=== PATIENT | male | born 1975 | race Caucasian/White ===

== ENCOUNTER 2020-09-18 08:46 | Emergency (ER) | payer OTHER ==
[~2020-09-18] VITALS: Ht 180.3 cm; Wt 102.1 kg
[~2020-09-18 08:46] MED LIST: HYDROCODON-ACE1 EA10 PO; LISINOPRIL20 MG PO
[2020-09-18] MEDS ORDERED: PREDNISONE20 MG PO (09:30)
[2020-09-18] MEDS ORDERED: HYDROCODON-ACE1 EA11 PO (09:30)
[2020-09-18] MEDS ORDERED: LIDODERM1 EACH TOP (09:30)
== END 2020-09-18 09:45 | disposition home or self-care (01) ==
LOC: ED 08:46
DX: M54.5 Low back pain (principal); F17.200 Nicotine dependence, unspecified, uncomplicated
CPT/HCPCS: 99283; A9270; J7512

== ENCOUNTER 2023-09-11 06:31 | Day surgery (SDC) | payer OTHER ==
[~2023-09-11] VITALS: Ht 180.3 cm; Wt 104.1 kg
[~2023-09-11 06:31] MED LIST changes: +HYDROCODON-ACE1 EA11 PO; +LIDODERM1 EACH TOP; +PREDNISONE20 MG PO
[2023-09-11 06:43] VITALS: BP 158/95
--- NOTE | 2023-09-11 07:38 | NUR ---
09/11/23 0738 KrisAnny PATIENT ARRIVES IN PACU DROWSY. HE IS RESPONDING TO MY QUESTIONS AND RETURNS TO RESTING QUIETLY WITH HIS EYES CLOSED W/RESPIRATIONS EVEN AND UNLABORED.
[2023-09-11 07:45] VITALS: BP 129/79
--- NOTE | 2023-09-11 08:56 | OR ---
[facility] [address], [place] [address] Signed DATE OF OPERATION: 09/11/2023 SURGEON: Haris Mandel MD PREOPERATIVE DIAGNOSIS: Screening. POSTOPERATIVE DIAGNOSIS: Small internal anal skin tag x1. PROCEDURE: Colonoscopy without biopsy. ESTIMATED BLOOD LOSS: None. INDICATIONS: Angel is a 48-year-old gentleman, asked to see me for his initial screening colonoscopy. He has no lower GI complaints. There is no family history of colon cancer or polyps. In the office, I gave him a pamphlet on colonoscopy. He understands the nature of the test. There is risk including, but not limited to gas bloating, crampy abdominal pain, bleeding, perforation requiring surgery, and missed diagnosis. We also reviewed the need for IV conscious sedation. He expressed understanding and wished to proceed. DESCRIPTION OF PROCEDURE: Angel was taken into our endoscopy suite and placed in the left lateral decubitus position. He was given 7 mg of Versed and 100 mcg of fentanyl to cover the case. A digital rectal exam was performed. No external hemorrhoids. Good sphincter tone. I could just reach his prostate and it is somewhat enlarged and indurated given his age. The adult colonoscope was introduced and advanced quite readily around into the cecum itself. His prep was quite excellent. We could easily see the appendiceal orifice and the ileocecal valve. The scope was then slowly withdrawn. We took several pictures throughout for photodocumentation. There were no polyps. There was no diverticulosis. The rectum was unremarkable. Upon retroflexion of the scope, I saw one small 3 or 4 mm internal anal skin tag. After this, the gas was suctioned out and the colonoscope removed. Angel tolerated the procedure quite well. RECOMMENDATIONS: Angel can follow up in 10 years for repeat screening colonoscopy. Electronically Signed By: HARIS MANDEL MD 09/11/23 0856 PATIENT NAME: ANGEL AYALA OPERATIVE REPORT DATE OF : 75 REPORT #: [id number] PHYSICIAN: HARIS MANDEL MD PCP: BRITTNEY KAMARA PAC REPORT IS CONFIDENTIAL AND NOT TO BE RELEASED WITHOUT AUTHORIZATION [address] [address] Signed MD JEZ Gonzales/KAE /[id number] cc: MD Brittney Gonzales PA Copies: HARIS MANDEL MD ~ Electronically Signed By: HARIS MANDEL MD 09/11/23 0856 PATIENT NAME: ANGEL AYALA OPERATIVE REPORT DATE OF : 75 REPORT #: [id number] PHYSICIAN: HARIS MANDEL MD PCP: BRITTNEY KAMARA PAC REPORT IS CONFIDENTIAL AND NOT TO BE RELEASED WITHOUT AUTHORIZATION
== END 2023-09-11 08:00 | disposition home or self-care (01) ==
LOC: DS 06:31
PROVIDERS: ATTEND Colon & Rectal Surgery
PROC: 0DJD8ZZ Inspection of Lower Intestinal Tract, Via Natural or Artificial Opening Endoscopic (ICD-10-PCS; principal; 2023-09-11 07:30)
DX: Z12.11 Encounter for screening for malignant neoplasm of colon (principal); K64.4 Residual hemorrhoidal skin tags; I10 Essential (primary) hypertension; Z68.32 Body mass index [BMI] 32.0-32.9, adult
CPT/HCPCS: J2250; J3010; J7121

== ENCOUNTER 2024-05-09 08:50 | Day surgery (SDC) | payer OTHER ==
[2024-05-05 14:26] VITALS: BP 124/73
[~2024-05-09] VITALS: Ht 180.3 cm; Wt 104.5 kg
[~2024-05-09 08:50] MED LIST changes: +CEFAZOLIN SODIUM 2 GM/20 ML SYR IV SCH; +HEParin SOD (PORCINE) 5,000 UNIT/0.5 ML SYR SUB-Q SCH; +IBLOOD GLUCOSE TEST STRIP 1 EA TEST VI PRN; +LACTATED RINGER'S 1,000 ML IV SCH; +LIDOCAINE HCL 1% 5 ML SDV INJ ONE
[2024-05-09 08:57] VITALS: BP 138/77
[2024-05-09] MEDS ORDERED: MIDAZOLAM HCL 2 MG/2 ML VIAL ONE (11:28)
[2024-05-09] MEDS ORDERED: propofoL 200 MG/20 ML VIAL ONE (11:28)
[2024-05-09] MEDS ORDERED: BUPIVACAINE 0.75% IN DEXTROSE 2 ML AMP ONE (11:29)
[2024-05-09] MEDS ORDERED: LIDOCAINE HCL 2% 5 ML SDV ONE (11:29)
[2024-05-09] MEDS ORDERED: KETOROLAC TROMETHAMINE 30 MG/ML VIAL ONE (13:06)
[2024-05-09] MEDS ORDERED: ondansetron HCL 4 MG/2 ML VIAL ONE (13:06)
[2024-05-09] MEDS ORDERED: HYDROmorphone HCL 1 MG/ML SYR IV PRN (13:30)
[2024-05-09] MEDS ORDERED: NALOXONE HCL 0.4 MG SYR IV PRN ×2 (13:30)
[2024-05-09] MEDS ORDERED: PROCHLORPERAZINE EDISYLATE 10 MG/2 ML VIAL IV PRN (13:30)
[2024-05-09] MEDS ORDERED: HYDROCODONE/ACETA 5/325 TAB PO PRN (13:30)
[2024-05-09] MEDS ORDERED: IBLOOD GLUCOSE TEST STRIP 1 EA TEST VI PRN (13:30)
[2024-05-09] MEDS ORDERED: fentaNYL citrate 50 MCG/ML SDV IV PRN (13:30)
[2024-05-09] MEDS ORDERED: ondansetron HCL 4 MG/2 ML VIAL IV PRN ×2 (13:30)
--- NOTE | 2024-05-09 13:34 | NUR ---
05/09/24 1334 Sheets,Jimena 1314 PT ARRIVED TO PACU AND DENIES CONCERNS. PT ON RA AND PLAN OF CARE DISCUSSED. PT DENIES PAIN AND NAUSEA. 1316 PT ROLLED TO LEFT SIDE AND DRESSING NOTED TO HAVE SMALL AMOUNT OF SHADOWING OF RED DRAINAGE. 1328 HOB INCREASED AND PT SIPPING JUICE PER REQUEST.
[2024-05-09 13:51] VITALS: BP 116/78
--- NOTE | 2024-05-10 07:11 | OR ---
[facility] [address] [place], [place] [address] Signed DATE OF OPERATION: 05/09/2024 SURGEON: Haris Mandel MD PREOPERATIVE DIAGNOSIS: Recurrent pilonidal cyst (superior). POSTOPERATIVE DIAGNOSIS: Recurrent pilonidal cyst (superior). PROCEDURE: Pilonidal cystectomy. ESTIMATED BLOOD LOSS: None. INDICATIONS: Angel is a 49-year-old gentleman, who runs heavy equipment for a living. He came to me in 2010 for his pilonidal cystectomy. He came back in 2014 with recurrent pilonidal cyst and had to have it removed. He continues to work for the [employer] where he runs heavy equipment. After his last pilonidal cystectomy, he has been shaving the area and has now gone nine years before he finally got a recurrent pilonidal cyst. Of course, he has to wear heavy sophie clothing while working. He is aware that there is laser hair removal in the area that would be permanent. He came back to the office with respect to the above. On exam unfortunately, he does not have a very deep gluteal crease. He does keep the hair shaved back. He had just a punctate area with some granulation tissue. There was no fluctuance. He said this started in December of 2023, and it settled down quite a bit. I explained to him we needed to take him back to the OR to remove that and we leave it open as always and let heal in secondarily with saline soaked gauze dressing. He is very familiar with this whole process. He understands that pilonidal cysts have a high propensity to recur. He understands the expected intraop and postop course. There is risk including, but not limited to bleeding, infection, scarring, change in contour of the skin and recurrent pilonidal cyst. He expressed understanding and wished to proceed. PROCEDURE IN DETAIL: Angel was given a saddle block by our nurse forest management teacher. After this, we took him into the operating room and placed him in the prone claudine-knife position with appropriate padding and monitoring. He was given preoperative antibiotics along with subcutaneous Lovenox. SCDs were utilized. He was then prepped and draped in the usual sterile Electronically Signed By: HARIS MANDEL MD 05/10/24 0711 PATIENT NAME: ANGEL AYALA OPERATIVE REPORT DATE OF : 75 REPORT #: [id number] PHYSICIAN: HARIS MANDEL MD PCP: BRITTNEY KAMARA PAC REPORT IS CONFIDENTIAL AND NOT TO BE RELEASED WITHOUT AUTHORIZATION [facility] [address] [place], [place] [address] Signed fashion. We made our standard elliptical incision around the opening to the pilonidal cyst just off to the right of the gluteal crease with our 15 blade knife. We went down around very carefully and slowly with our cautery and it traveled a little bit to the left and we went clear around all the granulation tissue and the healthy fat. We went almost down to the coccyx/sacrum. We freed up the fibrous tissue underneath, so the skin would come up just a bit. We looked carefully and we felt that we had removed the entire pilonidal cyst. Unfortunately, this was quite small. It is unhealthy skin above his previous scars. After this, we injected local anesthetic into the wound. The wound was irrigated and suctioned out until clear. We used saline soaked gauze in the wound. This was covered with a dry ABD and some mesh underwear. Angel was rotated into the supine position on his hospital bed and taken into recovery room in stable condition. Haris Mandel MD ALB/MODL /[id number] cc: MD Brittney Gonzales PA Copies: HARIS MANDEL MD ~ Electronically Signed By: HARIS MANDEL MD 05/10/24 0711 PATIENT NAME: ANGEL AYALA OPERATIVE REPORT DATE OF : 75 REPORT #: [id number] PHYSICIAN: HARIS MANDEL MD PCP: BRITTNEY KAMARA [facility] REPORT IS CONFIDENTIAL AND NOT TO BE RELEASED WITHOUT AUTHORIZATION
--- NOTE | 2024-05-13 12:50 | PATH ---
[facility] [address] [facility] [place], [place] [address] Signed SPECIMEN(S): A PILONIDAL CYST SPECIMEN SOURCE: A. PILONIDAL CYST CLINICAL HISTORY: Pilonidal cyst. FINAL PATHOLOGIC DIAGNOSIS: Pilonidal cyst: - Skin with adjacent ruptured squamous epidermal inclusion cyst with adjacent acute and chronic abscess and foreign body type reaction. JVR:anastacio MICROSCOPIC EXAMINATION: Histologic sections of all submitted blocks are examined by light microscopy. These findings, together with the gross examination, support the pathologic diagnosis. GROSS DESCRIPTION: The specimen, labeled and designated "Ayala, pilonidal cyst," is received in formalin and consists of a portion of yellow-cabello to red-brown soft and fatty tissue (2.5 x 1.5 x 1.5 cm) with an attached camargo-cabello to red-brown unoriented ellipse of skin (2.0 x 1.0 cm) with a centrally located disrupted area on the skin surface (0.8 x 0.2 cm). The resection margin is inked blue, and the tissue serially sectioned to reveal yellow-cabello to red-brown soft cut surfaces with a white-cabello possible cystic area (0.3 x 0.3 x 0.3 cm). The specimen is submitted entirely in cassette (A1-A2). VB (under the direct supervision of a pathologist) The Gross Description was prepared using a voice recognition system. The report was reviewed for accuracy; however, sound-alike word errors, addition and/or deletions may occur. If there is any question about this report, please contact Client Services. PERFORMING LABORATORY: Technical component was performed by [facility], [address] [place] [id number] (CLIA# [id number]). Professional interpretation was performed by [facility], [address] [place] [id number] (CLIA#: [id number]). PATIENT NAME: ANGEL AYALA PATHOLOGY DATE OF : 75 REPORT #: [id number] PHYSICIAN: JUAN PATHOLOGY PCP: BRITTNEY KAMARA PAC REPORT IS CONFIDENTIAL AND NOT TO BE RELEASED WITHOUT AUTHORIZATION [place] [address] [address] [place] [address] Signed Diagnostician: Juliocesar Alvarado MD Pathologist Electronically Signed 05/13/2024 Copies: ~ PATIENT NAME: ANGEL AYALA PATHOLOGY DATE OF : 75 REPORT #: [id number] PHYSICIAN: JUAN PATHOLOGY PCP: BRITTNEY KAMARA PAC REPORT IS CONFIDENTIAL AND NOT TO BE RELEASED WITHOUT AUTHORIZATION
== END 2024-05-09 14:12 | disposition home or self-care (01) ==
LOC: DS 08:50
PROVIDERS: ATTEND Colon & Rectal Surgery
PROC: 0H98XZZ Drainage of Buttock Skin, External Approach (ICD-10-PCS; principal; 2024-05-09 11:15)
DX: L05.01 Pilonidal cyst with abscess (principal); I10 Essential (primary) hypertension; N52.9 Male erectile dysfunction, unspecified; F17.210 Nicotine dependence, cigarettes, uncomplicated; E66.9 Obesity, unspecified; Z68.32 Body mass index [BMI] 32.0-32.9, adult; Z79.899 Other long term (current) drug therapy
CPT/HCPCS: 00300; J0690; J1644; J1885; J2001; J2250; J2405; J2704; J7121